=== PATIENT | male | born 1950 | race Caucasian/White ===

== ENCOUNTER 2020-04-13 13:19 | Emergency (ER) | payer MEDICARE, OTHER, SELFPAY ==
[2020-04-13 13:21] VITALS: BP 137/81; PULSE 75; RESP 18; TEMP 36.7; O2SAT 97; BMI 27.9
--- NOTE | 2020-04-13 13:35 | CT_ITS ---
We are attempting to reach an attending provider to discuss findings. An addendum with communication details will be sent when the communication is complete. STUDY: CT ABDOMEN AND PELVIS WITHOUT CONTRAST REASON FOR EXAM: Male, 69 years old. PANCREATIC ABSCESS, R/O NECROTIZING PANCREATITIS RADIATION DOSAGE (If Supplied By Facility): CTDIvol = ( 15.08 ) mGy, DLP = ( 864.45 ) mGycm TECHNIQUE: Transaxial images were obtained from the dome of the diaphragm to the symphysis pubis without oral contrast, and without intravenous contrast. Sagittal and coronal images were reconstructed. Individualized dose optimization techniques were used for this CT. COMPARISON: None. FINDINGS: Mild subsegmental atelectasis is present in the posterior aspect of the left lower lobe with some associated interstitial scarring. Some minor interstitial scarring is seen in the right lung base. A small effusion is present in the interlobar fissure on the left. Small hypodense lobular lesions seen in the anterior subcapsular and central regions of the dome of the right lobe of the liver demonstrate centripetal nodular fill-in which are characteristic of benign hemangiomas. The lesions in measure 1.93 cm and 2.81 cm and do not require further assessment. The liver is otherwise normal in size and contour. No intrahepatic biliary duct dilatation or liver mass. The gallbladder is slightly distended but has a normal wall with no pericholecystic inflammation or visualized stone by CT. The full length of the splenic vein is thrombosed with low density intraluminal hematoma compatible with complications from necrotizing pancreatitis. The portal vein is normal. The remaining major venous structures are normal. The head, neck, and proximal body of the pancreas contains an encapsulated collection of fluid and debris measuring 7.46 cm in diameter. This is compatible with necrosis pancreatic material as well as additional secretions from the pancreas. I would not favor a pancreatic abscess initially given obvious signs of acute pancreatitis with necrosis. Some patchy areas of hypodensity are present throughout the remaining aspects of the pancreas but the parenchyma also shows some enhancement and preservation of normal architecture in these regions. Peripancreatic inflammatory stranding is mild. Normal spleen. No abnormal attenuation is seen in the spleen. Normal pancreas. Normal bilateral adrenal glands. Small simple clinically insignificant cyst at the upper pole of the right kidney noted. The right kidney is otherwise normal. Normal left kidney. No hydronephrosis or renal masses. No large stones. There is a small hiatal hernia. Normal small intestine. Normal colon. No bowel dilatation or obstruction. No free air or free fluid. The appendix is visualized and appears normal. There is diffuse atherosclerotic calcification of the abdominal aorta, without a demonstrated aneurysm. Normal inferior vena cava. Minor retroperitoneal lymphadenopathy is present which is likely reactive. Normal urinary bladder. Slightly enlarged heterogeneous prostate gland with an intact capsule and no obvious mass. Unremarkable seminal vesicles. Small fat-containing left inguinal hernia noted. There are minor degenerative changes of the visualized lumbar spine. CT/Abdomen/Pelvis W IV Cont ONLY IMPRESSION: 1. 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 2. Small benign hemangiomas of the right lobe of the liver Electronically Signed: Fredy Sims MD at 17:03 EDT , Service support ,
--- NOTE | 2020-04-13 14:05 | ED.DCSUM_ITS ---
History of Present Illness Chief Complaint: Abd Pain Informant: Patient Onset: Days Context: Gradual Onset Timing: Continuous Current Severity: Mild Maximum Severity: Mild Narrative: The patient is a 69-year-old male with medical history significant for recent hospitalization for pancreatitis that presents to the emergency department with fever, chills, and abnormal MRCP. The patient was hospitalized 3 weeks ago at [facility]. He was found to have pancreatitis. It was unclear of the acute etiology. He states his pain is been much better. For the past week, he has been spiking intermittent fevers. He followed up with his primary care who ordered an MRCP. MRCP does show evidence of peripancreatic inflammatory changes concerning for hemorrhagic pancreatitis with questionable necrotizing component. There is also an ill-defined density near the pancreas that was suspicion for abscess. The patient has been on Cipro and Flagyl for 5 days with little change in his symptoms. He states his fevers are worse at night. He is still drinking without issue. He has been on no new medications aside from the antibiotics. Prior similar symptoms: Yes Recent Illness/Hospitalization: Yes Past Medical History - Allergies and Home Meds Allergies/Adverse Reactions: Allergies Penicillins Allergy (Verified 04/13/20 13:24) Rash Primary Care Physician: Giorgio Roland MD [Primary Care Provider] - Prior records reviewed: Yes Past Medical History: - - Hypertension, GERD Surgical History: noncontributory Review of Systems General: Reports: Chills, Fever. Denies: Sweats Eyes: Denies: Visual changes - bilaterally, Diplopia ENT: Denies: Rhinorrhea, Sore throat Cardiovascular: Denies: Chest pain, Palpitations Respiratory: Denies: Dyspnea, Cough, Dyspnea on exertion Gastrointestinal: Reports: Abdominal pain. Denies: Nausea, Vomiting, Diarrhea, Melena, Hematochezia Genitourinary: Denies: Dysuria, Hematuria, Frequency Musculoskeletal: Denies: Back pain, Extremity Pain Skin: Denies: Rash, Wounds Neurological: Denies: Headache, Weakness, Numbness Physical Exam Vital Signs/Narrative: Vital Signs Temp Pulse Resp BP Pulse Ox 04/13/20 13:21 98.1 F 75 18 137/81 H 97 Inital Vital Signs reviewed: Yes General: Well nourished, Well developed, No Acute Distress Head: Normocephalic, Atraumatic Eyes: Perrl, EOMI ENT: Moist mucous membranes, No rhinorrhea Neck: Supple, Nontender Cardiovascular: Regular rate, Regular rhythm, No murmurs Respiratory: No distress, CTA bilaterally, Chest nontender Abdomen: Soft, Nondistended, Normal bowel sounds, Tender. Negative for: Guarding, Rebound tenderness Back: Nontender, Normal Inspection Extremities: Nontender, No edema Skin: Normal color, No rash Neurological: Alert, Oriented x3, Cranial nerves II-XII grossly intact, Normal Strength, Normal Sensation Psychological: Normal affect, Normal Mood Diagnostic/Tx/Re-eval Clinical Impression(s) from Imaging Studies Abdomen/Pelvis CT 04/13/20 13:35 IMPRESSION: 1. 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 2. Small benign hemangiomas of the right lobe of the liver Electronically Signed: Fredy Sims MD at 17:03 EDT , Service support , ADDENDUM: 04/13/20 1806 Abnormal Lab Results 04/13/20 04/13/20 04/13/20 14:10 14:50 14:50 WBC 12.9 H RBC 3.85 L Hgb 11.7 L Hct 36.3 L MCV 94.3 H MCH 30.4 MCHC 32.2 RDW Std Deviation 49.1 H RDW Coeff of Carrie 14.2 Plt Count 268 MPV 10.0 Immature Gran % (Auto) 0.700 Neut % (Auto) 63.2 Lymph % (Auto) 10.7 L [place]ry % (Auto) 24.3 H Eos % (Auto) 0.9 Baso % (Auto) 0.2 Absolute Neuts (auto) 8.2 H Absolute Lymphs (auto) 1.38 Nucleated RBC % 0 Differential Comment SCANNED Diff Path Review May foll Sodium 137 Potassium 3.8 Chloride 102 Carbon Dioxide 31.0 Anion Gap 4 L BUN 11 Creatinine 1.00 Estim Creat Clear Calc 70.70 Est GFR (MDRD) Af Amer 96 Est GFR (MDRD) Non-Af 79 BUN/Creatinine Ratio 11.1 Glucose 106 Lactic Acid Calcium 9.5 Total Bilirubin 0.40 AST 26 ALT 42 Alkaline Phosphatase 83 Total Protein 7.8 Albumin 2.8 L Globulin 5.0 H Albumin/Globulin Ratio 0.6 L Amylase 47 Lipase 233 Urine Color Urine Clarity Urine pH Ur Specific [place] Urine Protein Urine Glucose (UA) Urine Ketones Urine Occult Blood Urine Nitrite Urine Bilirubin Urine Urobilinogen Ur Leukocyte Esterase Urine RBC Urine WBC Ur Squamous Epith Cells Urine Bacteria Urine Mucus COVID-19 ([facility]) Cancelled 04/13/20 04/13/20 14:50 15:15 WBC RBC Hgb Hct MCV MCH MCHC RDW Std Deviation RDW Coeff of Carrie Plt Count MPV Immature Gran % (Auto) Neut % (Auto) Lymph % (Auto) [place] % (Auto) Eos % (Auto) Baso % (Auto) Absolute Neuts (auto) Absolute Lymphs (auto) Nucleated RBC % Differential Comment Diff Path Review Sodium Potassium Chloride Carbon Dioxide Anion Gap BUN Creatinine Estim Creat Clear Calc Est GFR (MDRD) Af Amer Est GFR (MDRD) Non-Af BUN/Creatinine Ratio Glucose Lactic Acid 1.1 Calcium Total Bilirubin AST ALT Alkaline Phosphatase Total Protein Albumin Globulin Albumin/Globulin Ratio Amylase Lipase Urine Color Yellow Urine Clarity Clear Urine pH 6.0 Ur Specific [place] 1.010 Urine Protein Negative Urine Glucose (UA) Normal Urine Ketones Negative Urine Occult Blood Negative Urine Nitrite Negative Urine Bilirubin Negative Urine Urobilinogen Normal Ur Leukocyte Esterase 25 H Urine RBC 0 SEEN Urine WBC 0-5 SEEN Ur Squamous Epith Cells 0 SEEN Urine Bacteria 0 SEEN Urine Mucus 0 SEEN COVID-19 ([facility]) - Medical Decision Making The patient presents with intermittent midepigastric pain and fevers. I did review his MRCP which was concerning for pancreatic abscess. Labs were obtained. He does have leukocytosis, otherwise labs are unremarkable. Blood cultures were obtained. Patient's lactic acid was negative. Patient underwent CT of the abdomen and pelvis. This does show almost complete hemorrhagic changes of his pancreas with a splenic artery thrombus. I did discuss this with the radiologist. He states is very hard to determine if this is abscess because there is no peripancreatic tissue to compare to. I do suspect that he has intra-abdominal infection and will require higher level of care. After discussion with the patient, he is requesting transfer to [facility] and this was arranged. He was covered with broad-spectrum antibiotics and will be transferred. Impression 1. Hemorrhagic pancreatitis 2. Pancreatic abscess ED Disposition - Plan for ED Patient: Referrals: Giorgio Roland MD [Primary Care Provider] -
[2020-04-13] MEDS: 0.9% Normal Saline 1,000 ML 1000 ML IV (14:52)
[2020-04-13 15:04] VITALS: BP 122/51; PULSE 56; RESP 17; TEMP 36.9; O2SAT 94
[2020-04-13 15:09] LABS: Absolute Lymphocyte Count 1.38 X10^3/uL (0.83-4.51); Absolute Neutrophil Count 8.2 X10^3/uL (2.0-7.7); Basophil# 0.02 X10^3/uL; Basophil% 0.2 % (0-1); Eosinophil# 0.11 X10^3/uL; Eosinophils% 0.9 % (0-5); Hematocrit 36.3 % (40-54); Hemoglobin 11.7 g/dL (13.0-16.5); Lymphocyte # 1.38 X10^3/ul (4.0); Lymphocyte % 10.7 % (19-41); Mean Corp Hgb Conc 32.2 g/dL (32-36); Mean Corpuscular Hgb 30.4 pg (27.0-32.0); Mean Corpuscular Volume 94.3 fL (80-94); Monocyte# 3.15 X10^3/uL; Monocyte% 24.3 % (0-10); NRBC Flagged by Analyzer 0 % (0-5); Neutrophil # 8.19 X10^3/uL (2.7-7.7); Neutrophil % 63.2 % (47-70); POSITIVE DIFFERENTIAL YES; Platelet Count 268 K/mm3 (150-450); RBC Distribution Width CV 14.2 % (11.6-14.6); RBC Distribution Width SD 49.1 fl (35.1-43.9); Red Blood Count 3.85 M/mm3 (4.6-6.2); White Blood Count 12.9 K/mm3 (4.4-11.0)
[2020-04-13 15:11] LABS: Differential Indicated SCAN CRITERIA MET
[2020-04-13 15:21] LABS: Bacteria 0 SEEN /hpf (None Seen); Mucous, Urine 0 SEEN /hpf (<or=2+); Red Blood Cells-Urine 0 SEEN /hpf (0-5); Squamous Epithelial Cells - UA 0 SEEN /hpf (0-5)
[2020-04-13 15:22] LABS: ALB/GLOB Ratio 0.6 RATIO (0.9-2.4); AST(SGOT) 26 U/L (15-37); Alanine Aminotransfer ALT/SGPT 42 U/L (16-61); Albumin, Serum 2.8 g/dL (3.2-5.0); Alkaline Phosphatase 83 U/L (45-117); Amylase 47 U/L (25-115); Anion Gap 4 (5-15); BUN 11 mg/dL (7-18); BUN/Creat Ratio 11.1 RATIO (10-20); Calcium,Total 9.5 mg/dL (8.5-10.1); Chloride 102 mmol/L (98-107); EST Glomerular Filtration Rate 79 mL/min (>60); Est Glom Filt Rate - Afr Amer 96 mL/min (>60); Glucose 106 mg/dL (74-106); Lipase 233 U/L (73-393); Potassium 3.8 mmol/L (3.5-5.1); Protein, Total 7.8 g/dL (6.4-8.2); Sodium Level 137 mmol/L (136-145)
[2020-04-13 15:23] VITALS: BP 122/51; PULSE 60; RESP 17; O2SAT 96
[2020-04-13 15:30] LABS: Lactic Acid 1.1 mmol/L (0.4-1.9)
[2020-04-13 15:37] LABS: Differential Comment SCANNED
[2020-04-13 15:59] LABS: Color, Urine Yellow (Yellow); Glucose, Dipstick Normal (Normal); Ketone-Dipstick Negative (Negative); Leukocyte Esterase-Dipstick 25 /ul (Negative); Nitrite-Dipstick Negative (Negative); Occult Blood-Urine Negative /ul (Negative); Protein-Dipstick Negative (Negative); Urine Bilirubin Dipstick Negative (Negative); Urine Clarity Clear (Clear); Urine Urobilinogen Normal (Normal)
[2020-04-13 16:00] VITALS: BP 137/70; PULSE 62; RESP 16; TEMP 36.9; O2SAT 95
[2020-04-13 16:32] LABS: White Blood Cells 0-5 SEEN /hpf (0-5)
[2020-04-13 18:14] VITALS: BP 140/70; PULSE 57; RESP 16; O2SAT 96
--- NOTE | 2020-04-13 18:16 | NURSING ---
[facility] CALLED BACK
[2020-04-13 19:56] VITALS: BP 142/71; PULSE 65
[2020-04-16 11:43] LABS: Pathologist Review Reviewed
== END 2020-04-13 19:30 | disposition short-term general hospital (02) ==
PROVIDERS: Emergency Provider Emergency Medicine; PCP Family Medicine
DX: K85.92 Acute pancreatitis with infected necrosis, unspecified (principal); I82.890 Acute embolism and thrombosis of other specified veins; D18.03 Hemangioma of intra-abdominal structures; I10 Essential (primary) hypertension; K21.9 Gastro-esophageal reflux disease without esophagitis; Z79.2 Long term (current) use of antibiotics
CPT/HCPCS: 74177; 80053; 81001; 82150; 83605; 83690; 85025; 87040; 87635; 96361; 96365; 96366; 99285; G2023; J7030; Q9967; A4216; U0002